=== PATIENT | male | born 1965 | race Caucasian/White ===

== ENCOUNTER → 2023-12-30 17:56 | Outpatient (CLI) | payer OTHER, SELFPAY ==
[2023-12-30 18:41] LABS: Influenza A - CEPHEID Flu A NEGATIVE (NEGATIVE); Influenza B - CEPHEID Flu B NEGATIVE (NEGATIVE); Respiratory Syncytial Virus Negative (Negative)
[2023-12-30 19:07] LABS: COVID-19 CEPHEID 4-PLEX PCR POSITIVE (Negative)
== END ==
PROVIDERS: PCP Family Medicine; Visit Provider Nurse Practitioner Family
DX: R05.1 Acute cough (principal)
CPT/HCPCS: 0241U